=== PATIENT | female | born 1990 | race American Indian/Alaskan Native ===

== ENCOUNTER 2022-02-08 11:08 | Outpatient (CLI) | payer MEDICAID ==
--- NOTE | 2022-02-08 12:50 | Ultrasound Report ---
ULTRASOUND OBSTETRIC LIMITED INDICATION / CLINICAL INFORMATION: presentation. TECHNIQUE: Transabdominal ultrasound imaging. COMPARISON: None available. FINDINGS: HEART RATE (beats per minute): 136 AMNIOTIC FLUID INDEX (cm) = not measured PRESENTATION: Cephalic. ADDITIONAL FINDINGS: None. IMPRESSION: Cephalic presentation Signer Name: Dario Herrera Jr, MD Signed: 02/08/2022 12:46 PM Workstation Name: [id number]
[2022-02-08 12:52] VITALS: BP 119/63
== END 2022-02-08 13:04 | disposition home or self-care (01) ==
LOC: LD 11:08 → LDOR 11:08 → EDSTATUS 11:30 → LDOR 13:04
PROVIDERS: ATTEND Obstetrics & Gynecology
DX: Z34.93 Encounter for supervision of normal pregnancy, unspecified, third trimester (principal); Z3A.37 37 weeks gestation of pregnancy
CPT/HCPCS: 59025; 76815

== ENCOUNTER 2022-02-24 05:28 | Inpatient (IN) | payer MEDICAID ==
[2022-02-22 11:55] LABS: Hematocrit 31.1 % (30.3-42.9); Hemoglobin 9.8 gm/dl (10.1-14.3); Mean Corpuscular HGB Conc 32 % (30-34); Mean Corpuscular Volume 85 fl (79-97); Platelet Count 170 K/mm3 (140-440); Red Blood Count 3.67 M/mm3 (3.65-5.03); Red Cell Distribution Width 16.3 % (13.2-15.2)
--- NOTE | 2022-02-23 13:01 | History and Physical Report ---
History of Present Illness Date of examination: 02/23/22 Chief complaint: Scheduled section History of present illness: Pt is a 31 year old -[place] female MICHAEL 02/25/22 presents for scheduled section secondary to malpresentation and unstable lie. She reports irregular contractions and denies vaginal bleeding or leakage of fluid. She has had care at [facility] since 9 wks with MFM comanagement complicated by morbid obesity, anemia, malpresentation (s/p plan for external cephalic version on 02/08/22 with finding that day of cephalic presentation), unstable lie, genital herpes without lesion or prodrome, marginal cord insertion, Rubella equivocal status, and silent carrier status for alpha thalassemia. She is GBS positive. 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), gonorrhea (2014), herpes Family/Genetic History: hypertension, other (asthma ) Social history: no significant social history - Obstetrical History Expected Date of Delivery: 02/25/22 Actual Gestation: 39 Week(s) 5 Day(s) : 3 Para: 2 Hx # Term Pregnancies: 2 Number of Pregnancies: 0 Spontaneous Abortions: 0 Induced : 0 Number of Living Children: 2 Medications and Allergies Allergies Allergy/AdvReac Type Severity Reaction Status Date / Time No Known Allergies Allergy Verified 02/18/22 15:55 Home Medications Medication Instructions Recorded Confirmed Last Taken Type No Known Home Medications [No 02/18/22 02/18/22 Unknown History Reported Home Medications] Review of Systems All systems: negative - Vital Signs Vital signs: Vital Signs Temp Pulse Resp BP Pulse Ox 98.8 F 104 H 16 113/68 99 02/22/22 11:25 02/22/22 11:25 02/22/22 11:25 02/22/22 11:25 02/22/22 11:25 Temp Pulse Resp BP Pulse Ox 98.8 F 104 H 16 113/68 99 02/22/22 11:25 02/22/22 11:25 02/22/22 11:25 02/22/22 11:25 02/22/22 11:25 - Physical Exam Breasts: Positive: deferred Abdomen: Positive: soft (obese, gravid ) Uterus: Positive: enlarged (gravid ) Extremities: Positive: edema (trace) - Obstetrical FHR: auscultation normal Uterine Contraction Monitor Mode: External Uterine Contraction Pattern: Irregular Uterine Tone Measurement Phase: Resting Results Result Diagrams: 02/22/22 06:00 All other labs normal. Assessment and Plan A: IUP at 39w6d Malpresentation Unstable Lie Morbid Obesity Anemia Genital herpes without lesion or prodrome Marginal cord insertion Rubella equivocal status Silent carrier status for alpha thalassemia GBS positive P: Confirm malpresentation with ultrasound Proceed with primary section and other indicated procedures if confirmed.
[2022-02-24] MEDS ORDERED: OXYTOCIN DRIP 30 UNITS/500 ML BAG IV SCH ×2 (06:00→08:00)
[2022-02-24] MEDS ORDERED: FAMOTIDINE 20 MG/2 ML INJ IV ONE (06:00)
[2022-02-24] MEDS ORDERED: METOCLOPRAMIDE 10 MG/2 ML INJ IV ONE (06:00)
[2022-02-24] MEDS ORDERED: BICITRA ORAL LIQD 30ML PO ONE (06:00)
[2022-02-24] MEDS ORDERED: LACTATED RINGERS 1,000 ML IV SCH (06:00)
--- NOTE | 2022-02-24 07:02 | Anesthesia Day of Surgery ---
Anesthesia Day of Surgery - Day of Surgery Patient Examined: Yes Patient H&P Reviewed: Yes Patient is NPO: Yes
--- NOTE | 2022-02-24 07:06 | Anesthesia Consultation ---
Anesthesia Consult and Med Hx Date of service: 02/24/22 - Airway Anesthetic Teeth Evaluation: Poor ROM Head & Neck: Adequate Mental/Hyoid Distance: Adequate Mallampati Class: Class III Intubation Access Assessment: Probably Good - Pulmonary Exam CTA: Yes - Cardiac Exam Cardiac Exam: RRR - Pre-Operative Health Status ASA Pre-Surgery Classification: ASA3 Proposed Anesthetic Plan: Epidural, Spinal - Pulmonary Hx Smoking: No Hx Asthma: No COPD: No Hx Pneumonia: No - Cardiovascular System Hx Hypertension: No - Central Nervous System Hx Neuromuscular Disorder: Yes (MIGRAINE HEADACHE) Hx Seizures: No Hx Psychiatric Problems: No - Endocrine Hx Renal Disease: No Hx End Stage Renal Disease: No Hx Hypothyroidism: No Hx Hyperthyroidism: No - Hematic Hx Anemia: Yes Hx Sickle Cell Disease: No - Other Systems Hx Alcohol Use: No Hx Cancer: No Hx Obesity: Yes (BMI 57)
[2022-02-24] MEDS ORDERED: miSOPROStol 200 MCG TAB PR PRN (07:33)
[2022-02-24] MEDS ORDERED: OXYTOCIN 10 UNIT/1 ML INJ IM PRN (07:33)
[2022-02-24] MEDS ORDERED: DINOPROSTONE 10 MG VAG SUPP VG NR (07:33)
[2022-02-24] MEDS ORDERED: AMPICILLIN/NS 2 GM/100 ML 2 GM/100 ML BAG IV ONE (07:33)
[2022-02-24] MEDS ORDERED: LOPERAMIDE 2 MG CAP PO PRN (07:33)
[2022-02-24] MEDS ORDERED: LIDOCAINE (2%) 20 MG/1 ML VIAL 20 ML MDV INFILTRATI NR (07:33)
--- NOTE | 2022-02-24 07:33 | Event Note ---
Date: 02/24/22 Ultrasound to confirm presentation this morning reveals fetus in cephalic presentation. When pt asked if she desires a trial of labor or to proceed with section, she desires induction. She is aware that she may require a section ultimately and she desires to proceed with induction.
--- NOTE | 2022-02-24 07:41 | Ultrasound Report ---
ULTRASOUND OBSTETRIC LIMITED INDICATION / CLINICAL INFORMATION: Presentation before c/section for breech. TECHNIQUE: Transabdominal ultrasound imaging. COMPARISON: 02/08/2022 FINDINGS: HEART RATE (beats per minute): 142 AMNIOTIC FLUID INDEX (cm) = not evaluated PRESENTATION: Cephalic. ADDITIONAL FINDINGS: None. IMPRESSION: Cephalic presentation Signer Name: Dario Herrera Jr, MD Signed: 02/24/2022 7:36 AM Workstation Name: [id number]
[2022-02-24] MEDS ORDERED: METHYLERGONOVINE MALEATE 0.2 MG/ML VIAL IM PRN (08:00)
[2022-02-24] MEDS ORDERED: fentaNYL 100 MCG/2 ML INJ IV PRN (08:00)
[2022-02-24] MEDS ORDERED: TERBUTALINE 1 MG/1 ML INJ SUB-Q PRN (08:00)
[2022-02-24] MEDS ORDERED: ONDANSETRON 4 MG/2 ML INJ IV PRN (08:00)
[2022-02-24] MEDS ORDERED: ACETAMINOPHEN 325 MG TAB PO PRN (08:00)
[2022-02-24] MEDS ORDERED: NALOXONE 0.4 MG/1 ML INJ IV PRN (08:00)
[2022-02-24] MEDS ORDERED: CARBOPROST TROMETHAMINE 250 MCG/1 ML INJ IM PRN (08:00)
[2022-02-24] MEDS ORDERED: BUTORPHANOL 2 MG/1 ML INJ IV PRN (08:00)
[2022-02-24] MEDS ORDERED: AMPICILLIN/NS 1 GM/50 ML 1 GM/50 ML BAG IV SCH (12:00)
[2022-02-24] MEDS ORDERED: MINERAL OIL 30 ML ORAL LIQD PO PRN (22:00)
[2022-02-25] MEDS ORDERED: miSOPROStol 25 MCG TAB VG SCH (03:02)
[2022-02-25] MEDS: LACTATED RINGERS 1,000 ML IV SCH ×2 (03:48→18:48)
--- NOTE | 2022-02-25 08:24 | Progress Note ---
Assessment and Plan - Patient Problems (1) Encounter for induction of labor Current Visit: Yes Status: Acute Plan to address problem: S/P cytotec 25 mcg vag x 1 dose Leave abdominal binder in place Initiate low-dose Pitocin Pain meds as desired per orders Continue to monitor maternal/ status (2) Morbid obesity with BMI of 50.0-59.9, adult Current Visit: Yes Status: Acute (3) Umbilical cord, marginal insertion Current Visit: Yes Status: Acute (4) Anemia Current Visit: Yes Status: Acute Qualifiers: Anemia type: iron deficiency Plan to address problem: Asymptomatic (5) Alpha thalassemia silent carrier Current Visit: Yes Status: Acute Subjective - Subjective Date of service: 02/25/22 Principal diagnosis: IOL; MO Interval history: Pt is a 31 year old -[place] female MICHAEL 02/25/22 presents for scheduled section secondary to malpresentation and unstable lie. She reports irregular contractions and denies vaginal bleeding or leakage of fluid. She has had care at [facility] since 9 wks with M comanagement complicated by morbid obesity, anemia, malpresentation (s/p plan for external cephalic version on 02/08/22 with finding that day of cephalic presentation), unstable lie, genital herpes without lesion or prodrome, marginal cord insertion, Rubella equivocal status, and silent carrier status for alpha thalassemia. She is GBS positive. Patient reports: movement normal, contractions, no new complaints, no loss of fluid, no vaginal bleeding Objective - Vital Signs Vital Signs: Vital Signs - 12hr 02/24/22 02/24/22 02/24/22 20:30 20:35 20:40 Temperature Pulse Rate 106 H 89 91 H Blood Pressure O2 Sat by Pulse 99 98 99 Oximetry O2 Sat by Pulse Oximetry [ Anterior Bilateral Throughout] 02/24/22 02/24/22 02/24/22 20:45 20:50 20:55 Temperature Pulse Rate 94 H 100 H 87 Blood Pressure O2 Sat by Pulse 99 100 100 Oximetry O2 Sat by Pulse Oximetry [ Anterior Bilateral Throughout] 02/24/22 02/24/22 02/24/22 21:00 21:05 21:10 Temperature Pulse Rate 97 H 90 91 H Blood Pressure O2 Sat by Pulse 100 100 99 Oximetry O2 Sat by Pulse Oximetry [ Anterior Bilateral Throughout] 02/24/22 02/24/22 02/24/22 21:15 21:20 21:25 Temperature Pulse Rate 103 H 101 H 94 H Blood Pressure O2 Sat by Pulse 99 99 99 Oximetry O2 Sat by Pulse Oximetry [ Anterior Bilateral Throughout] 02/24/22 02/24/22 02/24/22 21:30 21:35 21:40 Temperature Pulse Rate 100 H 93 H 96 H Blood Pressure O2 Sat by Pulse 99 98 98 Oximetry O2 Sat by Pulse Oximetry [ Anterior Bilateral Throughout] 02/24/22 02/24/22 02/24/22 21:45 21:50 21:55 Temperature Pulse Rate 95 H 100 H 99 H Blood Pressure O2 Sat by Pulse 99 100 100 Oximetry O2 Sat by Pulse Oximetry [ Anterior Bilateral Throughout] 02/24/22 02/24/22 02/24/22 22:09 22:14 22:19 Temperature Pulse Rate 102 H 89 98 H Blood Pressure O2 Sat by Pulse 99 100 100 Oximetry O2 Sat by Pulse Oximetry [ Anterior Bilateral Throughout] 02/24/22 02/24/22 02/24/22 22:24 22:29 22:34 Temperature Pulse Rate 100 H 112 H 94 H Blood Pressure O2 Sat by Pulse 100 99 99 Oximetry O2 Sat by Pulse Oximetry [ Anterior Bilateral Throughout] 02/24/22 02/24/22 02/24/22 22:39 22:44 22:49 Temperature Pulse Rate 105 H 101 H 99 H Blood Pressure O2 Sat by Pulse 100 100 99 Oximetry O2 Sat by Pulse Oximetry [ Anterior Bilateral Throughout] 02/24/22 02/24/22 02/24/22 22:54 22:59 23:04 Temperature Pulse Rate 110 H 100 H 96 H Blood Pressure O2 Sat by Pulse 99 100 100 Oximetry O2 Sat by Pulse Oximetry [ Anterior Bilateral Throughout] 02/24/22 02/24/22 02/24/22 23:09 23:14 23:19 Temperature Pulse Rate 94 H 98 H 86 Blood Pressure O2 Sat by Pulse 100 97 99 Oximetry O2 Sat by Pulse Oximetry [ Anterior Bilateral Throughout] 02/24/22 02/24/22 02/24/22 23:21 23:24 23:29 Temperature Pulse Rate 94 H 95 H 102 H Blood Pressure O2 Sat by Pulse 90 98 97 Oximetry O2 Sat by Pulse Oximetry [ Anterior Bilateral Throughout] 02/24/22 02/24/22 02/24/22 23:34 23:39 23:44 Temperature Pulse Rate 98 H 98 H 104 H Blood Pressure O2 Sat by Pulse 96 97 96 Oximetry O2 Sat by Pulse Oximetry [ Anterior Bilateral Throughout] 02/24/22 02/24/22 02/24/22 23:49 23:54 23:59 Temperature Pulse Rate 92 H 97 H 102 H Blood Pressure O2 Sat by Pulse 95 96 99 Oximetry O2 Sat by Pulse Oximetry [ Anterior Bilateral Throughout] 02/25/22 02/25/22 02/25/22 00:04 00:09 00:14 Temperature Pulse Rate 103 H 103 H 106 H Blood Pressure O2 Sat by Pulse 96 98 97 Oximetry O2 Sat by Pulse Oximetry [ Anterior Bilateral Throughout] 02/25/22 02/25/22 02/25/22 00:19 00:24 00:29 Temperature Pulse Rate 101 H 98 H 93 H Blood Pressure O2 Sat by Pulse 97 98 98 Oximetry O2 Sat by Pulse Oximetry [ Anterior Bilateral Throughout] 02/25/22 02/25/22 02/25/22 00:34 00:39 00:44 Temperature Pulse Rate 106 H 100 H 95 H Blood Pressure O2 Sat by Pulse 98 98 97 Oximetry O2 Sat by Pulse Oximetry [ Anterior Bilateral Throughout] 02/25/22 02/25/22 02/25/22 00:45 00:49 00:54 Temperature 98.6 F Pulse Rate 93 H 101 H Blood Pressure O2 Sat by Pulse 96 97 Oximetry O2 Sat by Pulse Oximetry [ Anterior Bilateral Throughout] 02/25/22 02/25/22 02/25/22 00:59 01:04 01:09 Temperature Pulse Rate 99 H 92 H 101 H Blood Pressure O2 Sat by Pulse 97 96 98 Oximetry O2 Sat by Pulse Oximetry [ Anterior Bilateral Throughout] 02/25/22 02/25/22 02/25/22 01:14 01:19 01:20 Temperature Pulse Rate 97 H 113 H 107 H Blood Pressure O2 Sat by Pulse 96 96 92 Oximetry O2 Sat by Pulse Oximetry [ Anterior Bilateral Throughout] 02/25/22 02/25/22 02/25/22 01:24 01:29 01:34 Temperature Pulse Rate 92 H 107 H 95 H Blood Pressure O2 Sat by Pulse 96 96 96 Oximetry O2 Sat by Pulse Oximetry [ Anterior Bilateral Throughout] 02/25/22 02/25/22 02/25/22 01:39 01:44 01:49 Temperature Pulse Rate 96 H 108 H 96 H Blood Pressure O2 Sat by Pulse 97 97 97 Oximetry O2 Sat by Pulse Oximetry [ Anterior Bilateral Throughout] 02/25/22 02/25/22 02/25/22 01:54 01:59 02:04 Temperature Pulse Rate 94 H 98 H 101 H Blood Pressure O2 Sat by Pulse 99 98 97 Oximetry O2 Sat by Pulse Oximetry [ Anterior Bilateral Throughout] 02/25/22 02/25/22 02/25/22 02:09 02:14 02:19 Temperature Pulse Rate 109 H 99 H 98 H Blood Pressure O2 Sat by Pulse 100 97 98 Oximetry O2 Sat by Pulse Oximetry [ Anterior Bilateral Throughout] 02/25/22 02/25/22 02/25/22 02:24 02:29 02:34 Temperature Pulse Rate 92 H 102 H 94 H Blood Pressure O2 Sat by Pulse 97 98 99 Oximetry O2 Sat by Pulse Oximetry [ Anterior Bilateral Throughout] 02/25/22 02/25/22 02/25/22 02:39 02:44 02:49 Temperature Pulse Rate 96 H 95 H 109 H Blood Pressure O2 Sat by Pulse 98 98 99 Oximetry O2 Sat by Pulse Oximetry [ Anterior Bilateral Throughout] 02/25/22 02/25/22 02/25/22 03:04 03:09 03:14 Temperature Pulse Rate 102 H 92 H 92 H Blood Pressure O2 Sat by Pulse 98 100 98 Oximetry O2 Sat by Pulse Oximetry [ Anterior Bilateral Throughout] 02/25/22 02/25/22 02/25/22 03:19 03:24 03:29 Temperature Pulse Rate 95 H 91 H 95 H Blood Pressure O2 Sat by Pulse 99 98 98 Oximetry O2 Sat by Pulse Oximetry [ Anterior Bilateral Throughout] 02/25/22 02/25/22 02/25/22 03:34 03:39 03:44 Temperature Pulse Rate 108 H 91 H 94 H Blood Pressure O2 Sat by Pulse 96 97 99 Oximetry O2 Sat by Pulse Oximetry [ Anterior Bilateral Throughout] 02/25/22 02/25/22 02/25/22 03:49 03:54 03:57 Temperature Pulse Rate 95 H 92 H 94 H Blood Pressure 129/66 O2 Sat by Pulse 100 99 Oximetry O2 Sat by Pulse Oximetry [ Anterior Bilateral Throughout] 02/25/22 02/25/22 02/25/22 03:59 04:04 04:05 Temperature 98.9 F Pulse Rate 91 H 89 Blood Pressure O2 Sat by Pulse 100 98 Oximetry O2 Sat by Pulse Oximetry [ Anterior Bilateral Throughout] 02/25/22 02/25/22 02/25/22 04:09 04:14 04:19 Temperature Pulse Rate 95 H 95 H 89 Blood Pressure O2 Sat by Pulse 98 99 98 Oximetry O2 Sat by Pulse Oximetry [ Anterior Bilateral Throughout] 02/25/22 02/25/22 02/25/22 04:24 04:29 04:34 Temperature Pulse Rate 94 H 93 H 91 H Blood Pressure O2 Sat by Pulse 99 99 99 Oximetry O2 Sat by Pulse Oximetry [ Anterior Bilateral Throughout] 02/25/22 02/25/22 02/25/22 04:39 04:44 04:49 Temperature Pulse Rate 92 H 87 84 Blood Pressure O2 Sat by Pulse 98 99 100 Oximetry O2 Sat by Pulse Oximetry [ Anterior Bilateral Throughout] 02/25/22 02/25/22 02/25/22 04:54 04:59 05:04 Temperature Pulse Rate 92 H 98 H 94 H Blood Pressure O2 Sat by Pulse 98 98 100 Oximetry O2 Sat by Pulse Oximetry [ Anterior Bilateral Throughout] 02/25/22 02/25/22 02/25/22 05:09 05:14 05:19 Temperature Pulse Rate 105 H 103 H 99 H Blood Pressure O2 Sat by Pulse 99 99 99 Oximetry O2 Sat by Pulse Oximetry [ Anterior Bilateral Throughout] 02/25/22 02/25/22 02/25/22 05:24 05:29 05:34 Temperature Pulse Rate 101 H 99 H 90 Blood Pressure O2 Sat by Pulse 99 98 99 Oximetry O2 Sat by Pulse Oximetry [ Anterior Bilateral Throughout] 02/25/22 02/25/22 02/25/22 05:39 05:44 05:49 Temperature Pulse Rate 89 106 H 102 H Blood Pressure O2 Sat by Pulse 100 99 98 Oximetry O2 Sat by Pulse Oximetry [ Anterior Bilateral Throughout] 02/25/22 02/25/22 02/25/22 05:54 05:59 06:04 Temperature Pulse Rate 97 H 91 H 90 Blood Pressure O2 Sat by Pulse 97 98 98 Oximetry O2 Sat by Pulse Oximetry [ Anterior Bilateral Throughout] 02/25/22 02/25/22 02/25/22 06:09 06:14 06:19 Temperature Pulse Rate 101 H 96 H 93 H Blood Pressure O2 Sat by Pulse 96 99 97 Oximetry O2 Sat by Pulse Oximetry [ Anterior Bilateral Throughout] 02/25/22 02/25/22 02/25/22 06:24 06:29 06:34 Temperature Pulse Rate 93 H 99 H 95 H Blood Pressure O2 Sat by Pulse 99 97 98 Oximetry O2 Sat by Pulse Oximetry [ Anterior Bilateral Throughout] 02/25/22 02/25/22 02/25/22 06:46 06:51 06:56 Temperature Pulse Rate 104 H 90 100 H Blood Pressure O2 Sat by Pulse 100 97 98 Oximetry O2 Sat by Pulse Oximetry [ Anterior Bilateral Throughout] 02/25/22 02/25/22 02/25/22 07:01 07:06 07:11 Temperature Pulse Rate 105 H 101 H 101 H Blood Pressure O2 Sat by Pulse 99 98 97 Oximetry O2 Sat by Pulse Oximetry [ Anterior Bilateral Throughout] 02/25/22 02/25/22 02/25/22 07:12 07:14 07:16 Temperature Pulse Rate 100 H 99 H 94 H Blood Pressure 120/71 O2 Sat by Pulse 94 98 Oximetry O2 Sat by Pulse Oximetry [ Anterior Bilateral Throughout] 02/25/22 02/25/22 02/25/22 07:21 07:23 07:25 Temperature 98.8 F Pulse Rate 101 H 96 H Blood Pressure O2 Sat by Pulse 98 92 Oximetry O2 Sat by Pulse 96 Oximetry [ Anterior Bilateral Throughout] 02/25/22 02/25/22 02/25/22 07:26 07:31 07:36 Temperature Pulse Rate 90 89 84 Blood Pressure O2 Sat by Pulse 99 98 98 Oximetry O2 Sat by Pulse Oximetry [ Anterior Bilateral Throughout] 02/25/22 02/25/22 02/25/22 07:41 07:46 07:49 Temperature Pulse Rate 92 H 99 H 99 H Blood Pressure O2 Sat by Pulse 98 96 94 Oximetry O2 Sat by Pulse Oximetry [ Anterior Bilateral Throughout] 02/25/22 02/25/22 02/25/22 07:51 07:56 08:01 Temperature Pulse Rate 94 H 96 H 87 Blood Pressure O2 Sat by Pulse 95 96 98 Oximetry O2 Sat by Pulse Oximetry [ Anterior Bilateral Throughout] 02/25/22 02/25/22 02/25/22 08:06 08:11 08:14 Temperature Pulse Rate 103 H 117 H 111 H Blood Pressure O2 Sat by Pulse 98 96 93 Oximetry O2 Sat by Pulse Oximetry [ Anterior Bilateral Throughout] 02/25/22 02/25/22 08:16 08:21 Temperature Pulse Rate 83 95 H Blood Pressure O2 Sat by Pulse 98 97 Oximetry O2 Sat by Pulse Oximetry [ Anterior Bilateral Throughout] - Exam Breasts: deferred Cardiovascular: Regular rate Lungs: Normal air movement Abdomen: Present: other (gravid) Uterus: Present: other (S=D) FHR: category 1 Uterine Contraction Monitor Mode: External Cervical Dilatation: 3 (outter os, unable to reach inner os, vertex confirmed by bedside U/S) Cervical Effacement Percentage: 50 station: -4 Uterine Contraction Frequency (min): 3-5 Uterine Contraction Pattern: Irregular Uterine Tone Measurement Phase: Resting Uterine Contraction Intensity: Mild Extremities: edema Deep Tendon Reflex Grade: Normal +2 - Labs Labs: Abnormal Labs 02/22/22 06:00 WBC 4.3 L Hgb 9.8 L MCH 27 L RDW 16.3 H Laboratory Results - last 24 hr 02/24/22 06:00 Blood Type A POSITIVE Antibody Screen Negative
--- NOTE | 2022-02-25 18:25 | Event Note ---
Date: 02/25/22 Pt resting quietly. Low-dose Pitocin @ 4mu/min. Category 1 tracing. Abdominal binder remains in place.
--- NOTE | 2022-02-26 08:37 | Progress Note ---
Assessment and Plan A: IUP at 40w1d Unstable Lie Morbid Obesity Anemia Genital herpes without lesion or prodrome Marginal cord insertion Rubella equivocal status Silent carrier status for alpha thalassemia GBS positive P: Continue induction Closely monitor maternal and status Subjective - Subjective Date of service: 02/26/22 Principal diagnosis: Induction of labor Morbid Obesity, Unstable lie Interval history: Pt has received Cervidil, one dose of vaginal cytotec 25 mcg, and low dose pitocin overnight. This morning she is more uncomfortable with contractions. She reports some vaginal bleeding this morning after the was checked. Patient reports: vaginal bleeding, movement normal, contractions, no new complaints, no loss of fluid Objective - Vital Signs Vital Signs: Vital Signs - 12hr 02/25/22 02/25/22 02/25/22 20:41 20:46 20:51 Temperature Pulse Rate 100 H 87 94 H Respiratory Rate Blood Pressure 117/56 O2 Sat by Pulse 100 100 100 Oximetry 02/25/22 02/25/22 02/25/22 20:56 21:01 21:06 Temperature Pulse Rate 95 H 84 104 H Respiratory Rate Blood Pressure O2 Sat by Pulse 100 100 100 Oximetry 02/25/22 02/25/22 02/25/22 21:11 21:12 21:16 Temperature Pulse Rate 99 H 99 H 85 Respiratory Rate Blood Pressure O2 Sat by Pulse 99 84 99 Oximetry 02/25/22 02/25/22 02/25/22 21:21 21:26 21:27 Temperature Pulse Rate 85 90 88 Respiratory Rate Blood Pressure 119/59 O2 Sat by Pulse 100 99 Oximetry 02/25/22 02/25/22 02/25/22 21:31 21:34 21:35 Temperature 98.7 F Pulse Rate 89 89 Respiratory 17 Rate Blood Pressure O2 Sat by Pulse 100 90 Oximetry 02/25/22 02/25/22 02/25/22 21:36 21:41 21:46 Temperature Pulse Rate 87 85 102 H Respiratory Rate Blood Pressure O2 Sat by Pulse 100 98 95 Oximetry 02/25/22 02/25/22 02/25/22 21:51 21:56 22:01 Temperature Pulse Rate 87 99 H 86 Respiratory Rate Blood Pressure O2 Sat by Pulse 96 99 99 Oximetry 02/25/22 02/25/22 02/25/22 22:06 22:11 22:16 Temperature Pulse Rate 92 H 94 H 83 Respiratory Rate Blood Pressure O2 Sat by Pulse 99 99 98 Oximetry 02/25/22 02/25/22 02/25/22 22:21 22:26 22:31 Temperature Pulse Rate 79 91 H 103 H Respiratory Rate Blood Pressure O2 Sat by Pulse 98 97 97 Oximetry 02/25/22 02/25/22 02/25/22 22:36 22:41 22:46 Temperature Pulse Rate 93 H 90 101 H Respiratory Rate Blood Pressure O2 Sat by Pulse 99 98 99 Oximetry 02/25/22 02/25/22 02/25/22 22:51 22:56 23:01 Temperature Pulse Rate 103 H 110 H 94 H Respiratory Rate Blood Pressure O2 Sat by Pulse 99 99 100 Oximetry 02/25/22 02/25/22 02/25/22 23:06 23:11 23:16 Temperature Pulse Rate 91 H 88 92 H Respiratory Rate Blood Pressure O2 Sat by Pulse 100 98 100 Oximetry 02/25/22 02/25/22 02/25/22 23:21 23:23 23:26 Temperature Pulse Rate 105 H 95 H 98 H Respiratory Rate Blood Pressure O2 Sat by Pulse 98 94 98 Oximetry 02/25/22 02/25/22 02/25/22 23:27 23:53 23:56 Temperature Pulse Rate 103 H 86 118 H Respiratory Rate Blood Pressure 123/60 O2 Sat by Pulse 98 88 Oximetry 02/25/22 02/26/22 02/26/22 23:58 00:01 00:03 Temperature Pulse Rate 90 94 H 91 H Respiratory Rate Blood Pressure O2 Sat by Pulse 99 94 99 Oximetry 02/26/22 02/26/22 02/26/22 00:08 00:11 00:13 Temperature Pulse Rate 87 83 96 H Respiratory Rate Blood Pressure O2 Sat by Pulse 100 88 100 Oximetry 02/26/22 02/26/22 02/26/22 00:18 00:22 00:23 Temperature Pulse Rate 102 H 101 H 90 Respiratory Rate Blood Pressure O2 Sat by Pulse 98 92 98 Oximetry 02/26/22 02/26/22 02/26/22 00:28 00:31 00:33 Temperature Pulse Rate 93 H 102 H 108 H Respiratory Rate Blood Pressure O2 Sat by Pulse 96 83 L 98 Oximetry 02/26/22 02/26/22 02/26/22 00:38 00:43 00:48 Temperature Pulse Rate 91 H 98 H 98 H Respiratory Rate Blood Pressure O2 Sat by Pulse 98 97 98 Oximetry 02/26/22 02/26/22 02/26/22 00:53 00:56 00:58 Temperature Pulse Rate 92 H 50 L 100 H Respiratory Rate Blood Pressure O2 Sat by Pulse 98 84 98 Oximetry 02/26/22 02/26/22 02/26/22 01:07 01:08 01:27 Temperature Pulse Rate 108 H 84 Respiratory Rate Blood Pressure 132/63 O2 Sat by Pulse 95 92 Oximetry 02/26/22 02/26/22 01:29 03:27 Temperature Pulse Rate 91 H 120 H Respiratory Rate Blood Pressure 102/52 O2 Sat by Pulse 99 Oximetry - Exam Breasts: deferred Abdomen: Present: soft (obese, gravid ) Uterus: Present: normal (gravid ) FHR: auscultation normal Uterine Contraction Monitor Mode: External Cervical Dilatation: 3 Cervical Effacement Percentage: 50 station: -4 Uterine Contraction Pattern: Irregular Uterine Tone Measurement Phase: Resting Uterine Contraction Intensity: Moderate Extremities: edema (trace ) - Labs Labs: Abnormal Labs 02/22/22 06:00 WBC 4.3 L Hgb 9.8 L MCH 27 L RDW 16.3 H
[2022-02-26] MEDS: LACTATED RINGERS 1,000 ML IV SCH (08:59)
[2022-02-26] MEDS ORDERED: ONDANSETRON 4 MG/2 ML INJ IV PRN ×2 (10:52→22:12)
[2022-02-26] MEDS ORDERED: diphenhydrAMINE 50 MG/ML VIAL IV PRN (10:52)
[2022-02-26] MEDS ORDERED: LACTATED RINGERS 250 ML IV SOLN IV ONE (10:52)
[2022-02-26] MEDS ORDERED: NALOXONE 2 MG/2 ML INJ IV PRN (10:52)
[2022-02-26] MEDS ORDERED: NalbUPHINE 10 MG/1 ML INJ IV PRN (10:52)
[2022-02-26] MEDS ORDERED: ePHEDrine SULFATE 50 MG/1 ML INJ IV PRN (10:52)
[2022-02-26] MEDS ORDERED: fentaNYL-BUPIV 2 MCG/ML-0.125% 200 MCG/100 ML BAG EPIDURAL SCH (11:00)
--- NOTE | 2022-02-26 12:02 | Anesthesia Consultation ---
Anesthesia Consult and Med Hx Date of service: 02/26/22 - Airway Anesthetic Teeth Evaluation: Good ROM Head & Neck: Adequate Mental/Hyoid Distance: Adequate Mallampati Class: Class III Intubation Access Assessment: Possibly Difficult - Pulmonary Exam CTA: Yes - Cardiac Exam Cardiac Exam: RRR - Pre-Operative Health Status ASA Pre-Surgery Classification: ASA3 Proposed Anesthetic Plan: Epidural - Pulmonary Hx Smoking: No Hx Asthma: No COPD: No Hx Pneumonia: No Hx Sleep Apnea: No - Cardiovascular System Hx Hypertension: No Hx Heart Attack/AMI: No Hx Angina: No - Central Nervous System Hx Neuromuscular Disorder: Yes (MIGRAINE HEADACHE) Hx Seizures: No Hx Psychiatric Problems: No - Gastrointestinal Hx Gastroesophageal Reflux Disease: No - Endocrine Hx Renal Disease: No Hx End Stage Renal Disease: No Hx Liver Disease: No Hx Insulin Dependent Diabetes: No Hx Non-Insulin Dependent Diabetes: No Hx Hypothyroidism: No Hx Hyperthyroidism: No - Hematic Hx Anemia: Yes Hx Sickle Cell Disease: No - Other Systems Hx Alcohol Use: No Hx Cancer: No Hx Obesity: Yes (BMI 57)
--- NOTE | 2022-02-26 12:03 | Progress Note ---
Labor Epidural - Labor Epidural Start Time: 11:48 Stop Time: 11:59 Performed by:: JAIMEE QUIÑONES Procedure: Patient is requesting epidural for labor and pain. H&P, labs were reviewed. Patient IDed, all questions and concerns were answered, and consent was signed. Timeout was performed at bedside. Patient in sitting position. Sterile prep and drape was performed. 3ml of 1% lidocaine skin wheal at L[3]- L [4]. 17- gauge Tuohy epidural needle was advanced to loss of resistance with air technique 9cm. Negative CSF negative blood. Epidural catheter advanced to [15] centimeters. [negative] Aspiration [negative] test dose. Sterile dressing applied. Patient tolerated procedure.
[2022-02-26] MEDS ORDERED: AMPICILLIN/NS 2 GM/100 ML 2 GM/100 ML BAG IV ONE (12:16)
[2022-02-26] MEDS: ePHEDrine SULFATE 50 MG/1 ML INJ IV PRN ×3 (12:30→13:20)
[2022-02-26] MEDS ORDERED: AMPICILLIN/NS 1 GM/50 ML 1 GM/50 ML BAG IV SCH (16:00)
[2022-02-26] MEDS ORDERED: METOCLOPRAMIDE 10 MG/2 ML INJ IV NR (16:05)
[2022-02-26] MEDS ORDERED: FAMOTIDINE 20 MG/2 ML INJ IV NR (16:05)
[2022-02-26] MEDS ORDERED: BICITRA ORAL LIQD 30ML PO NR (16:05)
--- NOTE | 2022-02-26 16:05 | Event Note ---
Date: 02/26/22 Pt noted to have repetitive late decelerations with contractions. Cervix remains 350/-3/ballotable. Plan to proceed with section. Charge nurse aware.
[2022-02-26] MEDS ORDERED: LACTATED RINGERS 1,000 ML IV SCH (16:15)
[2022-02-26] MEDS ORDERED: LIDOCAINE 2%/EPINEPHRINE 1:200,000 VIAL (20 ML) INFILTRATI ONE (16:51)
[2022-02-26] MEDS ORDERED: OXYTOCIN DRIP 30 UNITS/500 ML BAG IV SCH ×2 (17:00→22:12)
[2022-02-26] MEDS ORDERED: TRANEXAMIC ACID 1,000 MG/10 ML ONE (17:10)
[2022-02-26] MEDS ORDERED: HYDROmorphone 1 MG/1 ML INJ IV PRN ×3 (17:17→22:12)
[2022-02-26] MEDS ORDERED: PROMETHAZINE 25 MG RECT SUPP PR PRN (17:17)
[2022-02-26] MEDS ORDERED: NALOXONE 0.4 MG/1 ML INJ IV PRN ×2 (17:17→22:12)
[2022-02-26] MEDS ORDERED: PROMETHAZINE 25 MG TAB PO PRN (17:17)
--- NOTE | 2022-02-26 17:17 | Anesthesia Day of Surgery ---
Anesthesia Day of Surgery - Day of Surgery Patient Examined: Yes Patient H&P Reviewed: Yes Patient is NPO: Yes Beta Blockers: No Cardiac Clearance: No Pulmonary Clearance: No Rodney's Test: N/A
[2022-02-26] MEDS ORDERED: PHENYLEPHRINE/NS 1,000 MCG/10 ML SYRINGE (OR USE) IV ONE (17:33)
[2022-02-26] MEDS ORDERED: dexAMETHasone 20 MG/5 ML VIAL ONE (18:23)
[2022-02-26] MEDS ORDERED: BUPIVACAINE/PF (0.25%) 2.5 MG/ML 30 ML VIAL INFILTRATI ONE (18:23)
--- NOTE | 2022-02-26 18:44 | Procedure Note ---
OB Delivery Note - Delivery Date of Delivery: 02/26/22 Surgeon: NICOLE MICHAELS Estimated blood loss: other (1266 mL) - Section Preop diagnosis: nonreassuring FHR tracing Postop diagnosis: same section procedure: section, primary low transverse Disposition: PACU Complications: intra-op hemorrhage Narrative: Please see operative report - A at 1 minute: 8 at 5 minutes: 9 Gender: Male (2620g (5lb 12 oz) @ 1736pm)
--- NOTE | 2022-02-26 18:46 | Operative Report ---
Operative Report Operative Report: Date of procedure: February 26, 2022 Preoperative diagnosis: 1) IUP at 40w1d 2) Nonreassuring status 3) Failed Induction of Labor 4) Morbid Obesity Postoperative diagnosis: Same Procedure: Primary low transverse section Surgeon: Constance Ray M.D. Wound Care Technician: Erica Manning M.D. Anesthesia: Regional Findings: 1) Viable male , Apgars 8 and 9, weight 2620g, (5 lb 12oz) in cephalic presentation. Nuchal cord x 1 2) Normal-appearing uterus ovaries and tubes 3) Large vessel coursing through lower uterine segment Estimated blood loss: 1266 mL Urine output: 100 mL, clear at the end of the procedure Drains: Hurtado to gravity Complications:None. Counts correct x 3 Disposition: Stable to PACU Indication for procedure: Pt is a 31 year old at 40w1d who underwent induction of labor secondary to obesity and progressed to 3 cm but began to have repetitive late decelerations remote from delivery. The decision was made to proceed with section. Operation in detail: After the risks, benefits, alternatives and complications were explained to the patient she gave informed consent for the procedure. She was subsequently taken to the operating room where regional anesthesia was noted to be adequate. She was placed in the dorsal supine position with leftward tilt and prepped and draped in a normal sterile fashion. heart tones were noted prior to incision. A timeout was performed. A Pfannenstiel skin incision was made with the knife and carried down to the layer of the fascia with the Bovie. The fascia was incised in the midline and the fascial incision was extended bilaterally with the Bovie. The fascial incision was then stretched. The rectus muscles were then in the midline for adequate visualization. The peritoneum was then entered bluntly. The peritoneal incision was extended with good visualization of the bladder. The peritoneal incision was then stretched. An Trell retractor was placed. The bladder blade was then placed. A large vessel was noted to be coursing through the midline of the lower uterine segment. At this time Dr. Manning joined the case. The vesicouterine peritoneum was grasped with smooth pick ups and incised with Metzenbaum scissors. A bladder flap was then created digitally and the bladder blade was replaced. A transverse incision was made in the lower uterine segment with a knife and stretched. Amniotomy was performed with egress of meconium stained fluid. head delivered with some difficulty, nuchal cord x 1 was reduced, followed by shoulders and body. bulb suctioned at delivery. Cord clamping delayed approximately 30 seconds, then cord clamped and cut. handed to [facility] in attendance. The placenta was then delivered manually. The uterus was then exteriorized and cleared of all clots and debris. [place] clamps were placed on the hysterotomy to occlude large vessel in the lower uterine segment. The hysterotomy was then reapproximated with 0 Monocryl in a running locked fashion. Additional figure of eights of 0 Monocryl were placed at the right side of the hysterotomy including the right round ligament to obtain hemostasis. The hysterotomy was inspected and hemostasis was noted. The gutters were irrigated and cleared of all clots and debris. The uterus was placed back into the peritoneal cavity. The hysterotomy was again inspected and noted to be hemostatic. Surgicel was placed over the hysterotomy. The Trell retractor was removed. The peritoneum was reapproximated with 0 Monocryl in a running fashion incorporating the rectus muscles. Surgicel was placed over the rectus muscles. The fascia was reapproximated with 0 Vicryl in a running fa shion. At this time Dr. Manning left the case. The subcutaneous tissue was reapproximated with 3-0 Vicryl in a running fashion. The skin was reapproximated with 3-0 Monocryl in a subcuticular fashiion. The incision was then covered with steri strips and a pressure dressing. The procedure was then ended. The patient tolerated the procedure well and was taken to the PACU in stable condition. All instrument, lap, and needle counts were correct 3.
[2022-02-26] MEDS ORDERED: IBUPROFEN 800 MG TAB PO SCH (22:12)
[2022-02-26] MEDS ORDERED: WITCH HAZEL/ GLYCERIN PAD TP PRN (22:12)
[2022-02-26] MEDS ORDERED: SIMETHICONE 80 MG CHEW TAB PO PRN (22:12)
[2022-02-26] MEDS ORDERED: D5W/LACTATED RINGERS 1,000 ML IV SCH (22:12)
[2022-02-26] MEDS ORDERED: LANOLIN/ZINC/DIMETHICONE (LANSINOH) 7 GM TP PRN (22:12)
[2022-02-26] MEDS: ceFAZolin/NS 1 GM/50 ML 1 GM/50 ML BAG IV SCH (23:32)
[2022-02-26] MEDS: KETOROLAC 30 MG/1 ML INJ IV SCH (23:32)
[2022-02-27 01:00] LABS: Hematocrit 31.8 % (30.3-42.9)
[2022-02-27] MEDS: KETOROLAC 30 MG/1 ML INJ IV SCH ×3 (06:48→15:21)
[2022-02-27] MEDS: ceFAZolin/NS 1 GM/50 ML 1 GM/50 ML BAG IV SCH (06:48)
[2022-02-27 08:22] LABS: Hematocrit 27.8 % (30.3-42.9)
[2022-02-27] MEDS ORDERED: ceFAZolin/NS 1 GM/50 ML 1 GM/50 ML BAG IV ONE (10:00)
[2022-02-27] MEDS: FERROUS SULFATE 325 MG TAB PO SCH (10:04)
--- NOTE | 2022-02-27 12:33 | Post Anesthesia Evaluation ---
- Post Anesthesia Evaluation Patient Participated: Yes Airway Patent: Yes Stable Respiratory Function: Yes Nausea/Vomiting: No Temp > 96.8F: Yes Pain Manageable: Yes Adequeate Hydration: Yes Anesthesia Complications: No Block Receding Appropriately: Yes Patient on Ventilator: No
--- NOTE | 2022-02-27 14:08 | Progress Note ---
Assessment and Plan - Patient Problems (1) Morbid obesity with BMI of 50.0-59.9, adult Current Visit: Yes Status: Acute (2) Anemia Current Visit: Yes Status: Acute Qualifiers: Anemia type: iron deficiency Plan to address problem: Asymptomatic (3) Alpha thalassemia silent carrier Current Visit: Yes Status: Acute (4) Status post primary low transverse section Current Visit: Yes Status: Acute Plan to address problem: Continue routine PP orders Keep dressing clean and dry, remove on POD#2 after showering Anticipate discharge home in 24-48 hrs if stable Subjective - Subjective Date of service: 02/27/22 Principal diagnosis: S/P primary C/S; POD#1 Interval history: Pt is a 31 year old -[place] female MICHAEL 02/25/22 presents for scheduled section secondary to malpresentation and unstable lie. She reports irregular contractions and denies vaginal bleeding or leakage of fluid. She has had care at [facility] since 9 wks with [facility] comanagement complicated by morbid obesity, anemia, malpresentation (s/p plan for external cephalic version on 02/08/22 with finding that day of cephalic presentation), unstable lie, genital herpes without lesion or prodrome, marginal cord insertion, Rubella equivocal status, and silent carrier status for alpha thalassemia. She is GBS positive. Delivered viable male via primary C/S for NRFHTs and failure to descend. Patient reports: appetite normal, voiding normally, pain well controlled, flatus, ambulating normally, no bowel movement [place]: in NICU, bottle feeding Objective - Vital Signs Latest vital signs: Vital Signs Temp Pulse Resp BP BP Pulse Ox Pulse Ox 02/27/22 09:02 98.2 F 97 H 116/68 02/27/22 06:48 12 02/27/22 05:15 98.0 F 72 20 128/68 100 02/27/22 00:36 98.5 F 95 H 20 117/63 99 02/26/22 21:50 98.6 F 88 12 116/76 97 98 02/26/22 20:00 82 22 115/66 99 02/26/22 19:45 85 22 128/67 100 02/26/22 19:30 80 20 116/62 100 02/26/22 19:15 89 13 110/82 99 02/26/22 19:00 75 18 114/58 100 02/26/22 18:50 88 26 H 101/49 100 02/26/22 18:45 98.0 F 97 H 14 120/69 100 02/26/22 16:41 98.4 F 02/26/22 16:15 112 H 100 02/26/22 16:10 116 H 100 02/26/22 16:05 131 H 100 02/26/22 16:03 131 H 103/54 02/26/22 16:00 125 H 100 02/26/22 15:55 129 H 100 02/26/22 15:50 129 H 100 02/26/22 15:48 106 H 107/55 02/26/22 15:45 93 H 100 02/26/22 15:40 113 H 100 02/26/22 15:35 103 H 100 02/26/22 15:30 109 H 100 02/26/22 15:27 107 H 101/59 02/26/22 15:25 114 H 100 02/26/22 15:23 102 H 103/51 02/26/22 15:20 101 H 100 02/26/22 15:18 104 H 101/52 02/26/22 15:15 102 H 100 02/26/22 15:12 97 H 103/54 02/26/22 15:10 105 H 100 02/26/22 15:07 101 H 105/54 02/26/22 15:05 104 H 97 02/26/22 15:03 99 H 106/50 02/26/22 15:00 100 H 99 02/26/22 14:58 111 H 108/51 02/26/22 14:55 125 H 100 02/26/22 14:53 101 H 103/53 02/26/22 14:50 106 H 100 02/26/22 14:47 101 H 103/56 02/26/22 14:45 100 H 100 02/26/22 14:42 108 H 92/51 02/26/22 14:40 99 H 100 02/26/22 14:37 118 H 84/48 02/26/22 14:35 106 H 100 02/26/22 14:34 110 H 84/44 02/26/22 14:30 109 H 99 02/26/22 14:28 106 H 91/52 02/26/22 14:25 109 H 99 02/26/22 14:22 107 H 89/52 02/26/22 14:20 106 H 100 02/26/22 14:18 112 H 89/52 02/26/22 14:15 110 H 100 02/26/22 14:13 109 H 90/50 02/26/22 14:10 116 H 99 02/26/22 14:08 106 H 90/54 02/26/22 14:05 116 H 99 Intake and Output 02/26/22 02/27/22 02/27/22 23:59 07:59 15:59 Intake Total 1300 290 Output Total 300 1200 Balance 1000 -910 Intake: IV 1300 50 ANCEF/NS 1 GM/50 ML 1 gm 50 In 50 ml @ 100 mls/hr IV Q8H [facility] Rx#:[id number] Oral 240 Output: Urine 300 1200 Indwelling Catheter 1200 Uretheral (Hurtado) 100 Other: Total, Intake Amount 240 Total, Output Amount 1200 - Exam Breasts: Present: normal Cardiovascular: Present: Regular rate Lungs: Present: Normal air movement Abdomen: Present: soft, tenderness Uterus: Present: firm, fundal height below umbilicus (U-1) Extremities: Present: edema (slight in BLE) Deep Tendon Reflex Grade: Normal +2 Incision: Present: dressed (no shadow drainage or bleeding noted) - Labs Labs: Abnormal lab results 02/27/22 02/27/22 Range/Units 00:22 07:43 Hgb 10.0 L 9.0 L (10.1-14.3) gm/dl Hct 27.8 L (30.3-42.9) %
[2022-02-27] MEDS ORDERED: MEASLES, MUMPS & RUBELLA 12,500 UNIT/0.5 ML VACCINE SUB-Q ONE (18:59)
[2022-02-27] MEDS ORDERED: TETANUS,DIPH,PERTUSS(ACELL) VACCINE 0.5 ML SYRINGE IM ONE (18:59)
[2022-02-28] MEDS: oxyCODONE /ACETAMINOPHEN 5-325MG TAB PO PRN ×3 (03:41→18:42)
[2022-02-28] MEDS: FERROUS SULFATE 325 MG TAB PO SCH (09:46)
[2022-02-28] MEDS ORDERED: MAGNESIUM HYDROXIDE (MOM) ORAL LIQD UDC PO PRN (10:20)
[2022-02-28] MEDS: DOCUSATE SODIUM 100 MG CAP PO SCH ×2 (11:32→22:23)
--- NOTE | 2022-02-28 14:55 | Progress Note ---
Assessment and Plan - Patient Problems (1) Morbid obesity with BMI of 50.0-59.9, adult Current Visit: Yes Status: Acute (2) Anemia Current Visit: Yes Status: Acute Qualifiers: Anemia type: iron deficiency Plan to address problem: Asymptomatic (3) Alpha thalassemia silent carrier Current Visit: Yes Status: Acute (4) Status post primary low transverse section Current Visit: Yes Status: Acute Plan to address problem: Continue routine PP orders Keep incision clean and dry Anticipate discharge home tomorrow Follow-up in office in 1 week for incision check Subjective - Subjective Date of service: 02/28/22 Principal diagnosis: S/P primary C/S; POD#2 Interval history: Pt is a 31 year old -[place] female MICHAEL 02/25/22 presents for scheduled section secondary to malpresentation and unstable lie. She reports irregular contractions and denies vaginal bleeding or leakage of fluid. She has had care at [facility] since 9 wks with [facility] comanagement complicated by morbid obesity, anemia, malpresentation (s/p plan for external cephalic version on 02/08/22 with finding that day of cephalic presentation), unstable lie, genital herpes without lesion or prodrome, marginal cord insertion, Rubella equivocal status, and silent carrier status for alpha thalassemia. She is GBS positive. Delivered viable male via primary C/S for NRFHTs and failure to descend. course has been uncomplicated. Discharge criteria met and desires to go home tomorrow. Patient reports: appetite normal, voiding normally, pain well controlled (with medications), flatus, ambulating normally, no bowel movement [place]: doing well, bottle feeding Objective - Vital Signs Latest vital signs: Vital Signs Temp Pulse Resp BP Pulse Ox Pulse Ox 02/28/22 08:49 100 02/28/22 08:02 97.6 F 100 H 20 129/84 100 02/28/22 04:41 18 02/28/22 03:41 18 02/28/22 00:44 98.3 F 104 H 18 125/62 99 02/27/22 20:49 100 Intake and Output 02/27/22 02/28/22 02/28/22 23:59 07:59 15:59 Intake Total 240 480 240 Balance 240 480 240 Intake: Oral 240 480 240 Other: Total, Intake Amount 240 240 240 # Voids Void 1 1 1 - Exam Breasts: Present: normal Cardiovascular: Present: Regular rate Lungs: Present: Normal air movement Abdomen: Present: soft, tenderness Uterus: Present: fundal height below umbilicus (U-2) Extremities: Present: normal Deep Tendon Reflex Grade: Normal +2 Incision: Present: dry, intact (steri-strip intact)
[2022-03-01] MEDS: oxyCODONE /ACETAMINOPHEN 5-325MG TAB PO PRN ×2 (01:22→10:06)
--- NOTE | 2022-03-01 08:24 | Progress Note ---
Assessment and Plan - Patient Problems (1) delivery delivered Current Visit: Yes Status: Acute Plan to address problem: Patient doing well Discharge home Subjective - Subjective Date of service: 03/01/22 Principal diagnosis: S/P primary C/S; POD#3 Interval history: Patient is currently without complaints. She is tolerating regular diet without complication. Her pain is well controlled. Patient reports: appetite normal, voiding normally, pain well controlled : doing well Objective - Vital Signs Latest vital signs: Vital Signs Temp Pulse Resp BP BP Pulse Ox Pulse Ox 03/01/22 00:00 98.6 F 69 18 114/78 02/28/22 22:25 98 02/28/22 17:07 97.6 F 113 H 20 140/84 98 02/28/22 08:49 100 Intake and Output 02/28/22 03/01/22 03/01/22 22:59 06:59 14:59 Intake Total 840 400 Balance 840 400 Intake: Oral 360 400 Intake, Free Water 480 Other: Total, Intake Amount 360 200 # Voids Void 3 1 - Exam Uterus: Present: normal Incision: Present: normal
--- NOTE | 2022-03-01 08:26 | Discharge Summary ---
Providers - Providers Date of Admission: 02/24/22 05:28 Date of discharge: 03/01/22 Attending physician: NICOLE MICHAELS 02/26/22 22:12 Consult to [facility] [CONS] Routine Reason For Exam: Primary care physician: NICOLE MICHAELS Hospitalization Reason for admission: induction of labor Delivery: Procedure: section, primary low transverse Incision: normal Discharge diagnosis: IUP at term delivered Hospital course: The patient was admitted for scheduled delivery for breech presentation. She was found to be cephalic and underwent induction of labor that was complicated by nonreassuring tracing and unstable lie. The patient underwent a primary delivery. Her course was uneventful. Condition at discharge: Good Disposition: 01 HOME / SELF CARE / HOMELESS - Discharge Diagnoses (1) delivery delivered Status: Acute Plan - Discharge Medications Prescriptions: Ibuprofen [Motrin] 800 mg PO Q8HR PRN #60 tablet PRN Reason: Pain , Severe (7-10) oxyCODONE /ACETAMINOPHEN [Percocet 5/325] 1 tab PO Q6HR PRN #30 tablet PRN Reason: Pain - Provider Discharge Summary Activity: no sex for 6 weeks, no heavy lifting 4 weeks, no strenuous exercise Diet: routine Instructions: routine Additional instructions: [] Smoking cessation referral if applicable(refer to patient education folder for contact #) [] Refer to [facility] Booklet Call your doctor immediately for: * Fever > 100.5 * Heavy vaginal bleeding ( >1 pad per hour) * Severe persistent headache * Shortness of breath * Reddened, hot, painful area to leg or breast * Drainage or odor from incision. * Keep incision clean and dry at all times and follow doctor's instructions regarding bathing/showering Schedule follow-up in 2 weeks - Follow up plan
[2022-03-01] MEDS: FERROUS SULFATE 325 MG TAB PO SCH (10:03)
[2022-03-01] MEDS: DOCUSATE SODIUM 100 MG CAP PO SCH (10:03)
[2022-03-01 15:35] VITALS: BP 128/77
== END 2022-03-01 15:30 | disposition home or self-care (01) | DRG 765 ==
LOC: APU 05:28 → LD 13:47 → APU 02-26 18:28 → OB 02-26 20:17
PROVIDERS: ADMIT Obstetrics & Gynecology; ATTEND Obstetrics & Gynecology
PROC: 10D00Z1 Extraction of Products of Conception, Low, Open Approach (ICD-10-PCS; principal; 2022-02-26)
PROC: 3E0R3BZ Introduction of Anesthetic Agent into Spinal Canal, Percutaneous Approach (ICD-10-PCS; 2022-02-26)
PROC: 00HU33Z Insertion of Infusion Device into Spinal Canal, Percutaneous Approach (ICD-10-PCS; 2022-02-26)
PROC: 3E0234Z Introduction of Serum, Toxoid and Vaccine into Muscle, Percutaneous Approach (ICD-10-PCS; 2022-02-27)
DX: O76 Abnormality in fetal heart rate and rhythm complicating labor and delivery (principal); O98.32 Other infections with a predominantly sexual mode of transmission complicating childbirth; O99.354 Diseases of the nervous system complicating childbirth; O32.0XX0 Maternal care for unstable lie, not applicable or unspecified; Z3A.39 39 weeks gestation of pregnancy; O35.8XX0 Maternal care for other (suspected) fetal abnormality and damage, not applicable or unspecified; D56.3 Thalassemia minor; Z37.0 Single live birth; Z20.822 Contact with and (suspected) exposure to COVID-19; Z23 Encounter for immunization; A60.00 Herpesviral infection of urogenital system, unspecified; G43.909 Migraine, unspecified, not intractable, without status migrainosus; O99.824 Streptococcus B carrier state complicating childbirth; O99.214 Obesity complicating childbirth; E66.01 Morbid (severe) obesity due to excess calories; O99.02 Anemia complicating childbirth; O61.9 Failed induction of labor, unspecified; O69.81X0 Labor and delivery complicated by cord around neck, without compression, not applicable or unspecified; O67.9 Intrapartum hemorrhage, unspecified
CPT/HCPCS: 36415; 59025; 76815; 85014; 85018; 85027; 86592; 86850; 86900; 86901; 88307; G0378; J3490; J7060; J7121; J0290; J0690; J1100; J1885; J2370; J2590; J2765; J7120; U0003